=== PATIENT | male | born 1990 | race African-American/Black ===

== ENCOUNTER 2016-10-17 15:45 | Inpatient (IN) | payer OTHER ==
--- NOTE | ~2016-10-17 | DS ---
Unit #: [id number] #: [id number] Patient: EDWARD CRAWFORD [id number] [address] [address] [id number] I MR#: [id number] NAME: EDWARD CRAWFORD ROOM: 230 Age: 26 Sex: M Admission Date: 10/17/2016 : 1990 Discharge Date: 10/19/2016 Attending Physician: Dave Cash M.D. Primary Care Physician: No Primary Care Physician DISCHARGE SUMMARY DISCHARGE DIAGNOSES 1. Diabetic ketoacidosis. 2. Left arm cellulitis and abscess. 3. Hypokalemia. 4. IV drug abuse. 5. Depression and anxiety. HOSPITAL COURSE The patient is a 26-year-old male who presented to [facility] emergency department on October 17 secondary to some redness and swelling in his left upper extremity. He is a known IV drug abuser. The patient states that he had associated redness, swelling and pain. In the ED, he was noted to have a glucose of 488 and anion gap of 18 with a beta-hydroxybutyrate of 8.5. As a result, he was admitted, started on a DKA protocol and insulin drip. Surgical consult was obtained for left upper extremity cellulitis and abscess. The patient was taken to the operating room on October 18 and underwent incision and drainage of left arm abscess. Ultimately, cultures grew methicillin susceptible Staph aureus and group B Strep. The patient had been started on IV vancomycin and Zosyn at the time of admission. These antibiotics were changed to Rocephin given sensitivity. The patient's diabetic ketoacidosis resolved as anticipated with insulin drip. There were no complications. The patient was switched back to his long acting insulin doses and was fed. He tolerated the diet well. At the time of discharge, the patient has been switched to oral antibiotics. Of note, the patient is homeless but states he has a place to stay. He is being discharged there now with oral Bactrim. DISCHARGE MEDICATIONS 1. Lantus 45 units in the morning, 35 units at night. 2. Humalog sliding scale. 3. Hydrocodone/acetaminophen 10/325m, one p.o. q.6 hours p.r.n. pain. 4. Bactrim DS, one p.o. b.i.d. FOLLOWUP The patient should follow up with his primary care provider for continued insulin and evaluation of his wound. The patient is being discharged with home health for wound care as well. Unit #: [id number] #: [id number] Patient: EDWARD CRAWFORD Dictated by... Dave Cash M.D. JUVENTINO/sandra TD: 10/24/2016 12:47 JOB #: [id number] DISCHARGE SUMMARY Page 1 of 1 X Dave Cash MD X DISCHARGE SUMMARY
--- NOTE | ~2016-10-17 | HP ---
Unit #: [id number] #: [id number] Patient: EDWARD CRAWFORD [id number] [address] [address] [id number] I MR#: [id number] NAME: EDWARD CRAWFORD ROOM: 48854 Age: 26 Sex: M Admission Date: 10/17/2016 : 1990 Attending Physician: Farzana Leiva M.D. Primary Care Physician: Primary Care Physician No HISTORY AND PHYSICAL CHIEF COMPLAINT Abscess left arm. HISTORY OF PRESENT ILLNESS The patient is a 26-year-old male with past medical history of diabetes, IV drug use, depression anxiety, tobacco abuse, who presented to the emergency department for evaluation of the above. The patient states that he injected IV drugs into his left arm. Since that time, he has had increasing redness, swelling, and pain. He denies any fever or chills. He states that he has been taking his insulin as prescribed with the last dose being this morning. He states that he is on Lantus 45 units in the morning, 35 units at night, as well as Humalog sliding scale. He does not routinely check his blood sugars at home. In the emergency department, white blood cell count is 10.7. Glucose 488, CO2 is 14, anion gap is 18. He was given 2 liters of normal saline in the emergency department as well as vancomycin. He is being admitted to [facility] for evaluation and further treatment. PAST MEDICAL HISTORY 1. Admission to [facility] 03/23/2016 for DKA. 2. IV drug use. 3. Depression anxiety. PAST SURGICAL HISTORY Eye surgery. ALLERGIES No known allergies. HOME MEDICATIONS 1. Lantus 45 units in the morning. 2. Lantus 35 units at night. 3. Humalog sliding scale. Home medications will need to be reviewed and verified. SOCIAL HISTORY The patient has a history of polysubstance abuse. He smokes a pack of cigarettes daily. He uses IV methamphetamine and heroin. The last use was yesterday. Unit #: [id number] #: [id number] Patient: EDWARD CRAWFORD REVIEW OF SYSTEMS A complete review of systems is negative except as indicated in the HPI. PHYSICAL EXAMINATION VITAL SIGNS: Temperature 98.1, pulse 72, respirations 18, blood pressure 147/91, oxygen saturation 100% on room air. GENERAL: The patient is awake and alert. HEENT: Head is atraumatic. Mucous membranes are dry. NECK: Supple. Trachea is midline. LUNGS: Clear to auscultation bilaterally with no increased work of breathing. HEART: Regular rate and rhythm. ABDOMEN: Soft, nontender. Bowel sounds present in all four quadrants. EXTREMITIES: The left upper extremity in the region of the bicep is erythematous, warm and tender to palpation. He has decreased range of motion secondary to pain. He does have a 2+ radial pulse involving the left upper extremity. NEUROLOGIC: Patient is awake and alert. He follows commands. PSYCHIATRIC: Mood and affect are normal. Patient demonstrates poor insight and judgment. SKIN OF EXAMINED AREAS: Previously described abnormalities. DIAGNOSTIC STUDIES LABORATORY: Complete blood count notable for a white blood cell count of 10.7. Lactic acid 1.1. Comprehensive metabolic panel notable for sodium of 131 that corrects when glucose of 488 is accounted for, potassium is 3.3, chloride 99, CO2 is 14, anion gap is 18, alkaline phosphatase 121. ASSESSMENT The patient is a 26-year-old male with: 1. Diabetic ketoacidosis. The patient received 2 liters of normal saline in the emergency department. DKA protocol has been ordered. 2. Anion gap metabolic acidosis with an anion gap of 18. 3. Hypokalemia. 4. Abscess left bicep. The patient received vancomycin in the emergency department. 5. IV drug use including methamphetamine and heroin, last use was yesterday. 6. Tobacco abuse. 7. Depression anxiety. PLAN 1. Admit to ICU. 2. N.p.o. except ice chips. 3. DKA protocol with insulin drip. 4. Check magnesium level. 5. Potassium magnesium protocol. 6. N.p.o. after midnight for possible surgical intervention. 7. Blood cultures x2. 8. Vancomycin IV and Zosyn IV, for abscess pending further workup. 9. Consult [facility] regarding abscess. 10. Check HIV and hepatitis panel. 11. manager coremanager custom consult regarding IV drug use. 12. P.r.n. Toradol. 13. P.r.n. Tylenol. 14. P.r.n. Zofran. 15. Repeat labs in the morning and as per DKA protocol. Unit #: [id number] #: [id number] Patient: EDWARD CRAWFORD 16. SCDs for DVT prophylaxis. 17. Protonix for GI prophylaxis since the patient will be in the ICU. 18. Check urinalysis and urine tox screen. Thirty minutes critical care time spent in the care of this patient (6:30 to 7 p.m.). Dictated by Marvin Núñez/michael TD: 10/17/2016 21:35 JOB #: [id number] HISTORY AND PHYSICAL Page 1 of 1 X Farzana Leiva MD X HISTORY AND PHYSICAL
--- NOTE | ~2016-10-17 | CR72 ---
[facility] A Service of [facility] & [facility] RADIOLOGY TEXT RESULTS PATIENT: EDWARD CRAWFORD LOCATION: [address] : [birth year] UNIT #: [id number] AGE: [address]: Dave Cash MD SEX: M ORDER DR: [id number] [facility] [address] [facility]. [place], [place] [address] [id number] I MR#: [id number] Acc #: [id number] NAME: EDWARD CRAWFORD : 1990 SEX: M STUDY DATE/TIME: 10/17/2016 19:44 UNIT: [facility] ROOM: [facility] STUDY DESCRIPTION: CR Chest Single View Portable Attending Physician: Farzana Leiva M.D. Ordering Physician: Farzana Leiva M.D. Primary Care Physician: Primary Care Physician No MEDICAL IMAGING REPORT This report is preliminary unless electronic signature is present EXAM Portable chest HISTORY Shortness of air with activity, diabetic with left arm abscess, symptoms for 3 days. COMPARISON 03/17/2016 FINDINGS A single AP portable view of the chest shows both lungs to be clear. The heart is normal in size. The mediastinal contour is normal. No significant bone abnormalities are seen. IMPRESSION Normal portable chest. Dictated by... Miguel Thomas M.D. THIS IS AN ELECTRONICALLY VERIFIED REPORT Miguel Thomas M.D. at 10/18/2016 10:10 AM DELMA/tila TD: 10/18/2016 00:52 JOB #: [id number] MEDICAL IMAGING REPORT Page 1 of 1 COPY
--- NOTE | ~2016-10-17 | CO ---
Unit #: [id number] #: [id number] Patient: EDWARD CRAWFORD [id number] [address] [place], [place] [address] [id number] José Antonio MR#: [id number] NAME: EDWARD CRAWFORD ROOM: 230 Age: 26 Sex: M Admission Date: 10/17/2016 : 1990 Attending Physician: Dave Cash M.D. Consultation Date: 10/18/2016 CONSULTATION REPORT CHIEF COMPLAINT Left arm abscess. HISTORY OF PRESENT ILLNESS This is a 26-year-old gentleman, who has a left arm abscess secondary to IV drug use. It flared up several days ago. He has been admitted for diabetic ketoacidosis and is currently in the intensive care unit. He is a relatively poor historian. PAST MEDICAL HISTORY Significant for diabetes, hypertension, and depression. PAST SURGICAL HISTORY He has had some kind of eye surgery. ALLERGIES He has no known drug allergies. MEDICATIONS Please see med rec list for list of medications. SOCIAL HISTORY He does smoke and has a history of polysubstance abuse. FAMILY HISTORY Noncontributory. REVIEW OF SYSTEMS Negative for fevers or jaundice or weight loss. Otherwise as above. PHYSICAL EXAMINATION VITAL SIGNS: Temperature is 98.0, heart rate is 83, respiratory rate is 14, blood pressure is 138/55. GENERAL: He is in no acute distress. HEENT: Pupils are equal and reactive to light and accommodation. His extraocular muscles are intact. NECK: Without masses or bruits. LUNGS: Show good breath sounds bilaterally with equal air exchange. CARDIAC: Shows regular rate and rhythm without murmur. ABDOMEN: Soft, nondistended, and nontender with no organomegaly. EXTREMITIES: Show left arm with cellulitis, induration, and tenderness along the mid arm. NEUROLOGIC: He is alert and oriented. There are no focal deficits. Unit #: [id number] #: [id number] Patient: EDWARD CRAWFORD DIAGNOSTIC STUDIES LABORATORY RESULTS: Glucose is down to 241 this morning. White blood count is 9000, hemoglobin is 13. OVERALL IMPRESSION This is a gentleman who has a left arm abscess. He needs incision and drainage today. I described the procedure including risks and benefits and I also told him he would need to have postoperative dressing changes. He understands and wishes to proceed. Dictated by... Derek Zhong III, M.D. VCL/yolanda TD: 10/19/2016 04:27 JOB #: [id number] CONSULTATION REPORT Page 1 of 1 X Derek Zhong III, MD X CONSULTATION REPORT
--- NOTE | ~2016-10-17 | EKG ---
PATIENT: EDWARD CRAWFORD UNIT #: [id number] Ventricular Rate: 68 BPM Atrial Rate: 68 BPM P-R Interval: 116 ms QRS Duration: 102 ms Q-T Interval: 484 ms QTC Calculation(Bezet): 514 ms P Chapin: 30 degrees Calculated R Chapin: 69 degrees Calculated T Chapin: 46 degrees Diagnosis Line: Normal sinus rhythm Diagnosis Line: Prolonged QT Diagnosis Line: Abnormal ECG Diagnosis Line: No previous ECGs available Diagnosis Line: Confirmed by SINAI DWYER MD ([id number]) on Diagnosis Line: 10/18/2016 6:53:48 AM INTERPRETING MD: ROBERTA
--- NOTE | ~2016-10-17 | OR ---
Unit #: [id number] #: [id number] Patient: EDWARD CRAWFORD [id number] [address] [address] [id number] I MR#: [id number] NAME: EDWARD CRAWFORD ROOM: 230 Date of Procedure: 10/18/2016 Admission Date: 10/17/2016 Surgeon: Derek Zhong III, M.D. : 1990 Attending Physician: Dave Cash M.D. OPERATIVE REPORT PREOPERATIVE DIAGNOSIS Left arm abscess secondary to IV drug use. POSTOPERATIVE DIAGNOSIS Left arm abscess secondary to IV drug use. PROCEDURE PERFORMED Incision and drainage of left arm abscess. ANESTHESIA General. SPECIMEN Cultures to microbiology. COMPLICATIONS None apparent. INDICATIONS FOR PROCEDURE This is a 26-year-old gentleman, who has a history of polysubstance abuse and IV drug use. He has an abscess in his left upper arm. He is here today for incision and drainage. DESCRIPTION OF PROCEDURE After consent was obtained, the patient was brought to the operating room and placed in the supine position. General anesthetic was administered and his left arm was prepped and draped in standard surgical fashion. I made a longitudinal incision overlying the area that was most indurated and I evacuated purulent pocket. Cultures were sent to microbiology. I irrigated and packed the wound with Betadine soaked Kerlix gauze. He tolerated the procedure without any problems and returned to the recovery room in stable condition. Dictated by... Derek Zhong III, M.D. VCL/yolanda TD: 10/18/2016 15:09 JOB #: [id number] Unit #: [id number] #: [id number] Patient: EDWARD CRAWFORD OPERATIVE REPORT Page 1 of 1 X Derek Zhong III, MD PROCEDURE OPERATIVE NOTE
[~2016-10-17 15:45] MED LIST: AUGMENTIN875 MG PO; BENADRYL25 M1 PO; DERMACORT1 GM EXT; FLEXERIL10 MG PO; HUMULIN 70100 UNIT/1 SUBQ; HUMULIN R100 U/ML; LANTUS100 UNITS/ SUBQ; LISINOPRIL10 MG PO; METFORMIN PO; NAPROSYN250 M1 PO; NOVOLIN 70100 UNITS/ SUBQ; NOVOLOG100 UNITS/ SUBQ; [UNRECOGNIZED DRUG - OTHER]
[2016-10-17 16:55] LABS: BASOPHIL% 0.4 % (0-2.5); EOSINOPHIL# 0.1 X10e3 (0-0.7); EOSINOPHIL% 1.1 % (0.0-7.0); HEMOGLOBIN 14.1 gm/dL (13.0-16.0); LYMPHOCYTE# 2.4 X10e3 (1.0-3.5); LYMPHOCYTE% 22.4 % (17.0-45.0); MEAN CELL VOLUME 83.1 FL (83-96); MEAN CORPUSCULAR HEMOGLOBIN 27.3 PG (28-34); MEAN CORPUSCULAR HGB CONC 32.9 g/dL (30-36); MEAN PLATELET VOLUME 9.2 FL (6.5-11.5); MONOCYTE# 0.8 X10e3 (0-1.0); MONOCYTE% 7.9 % (3.0-12.0); NEUTROPHIL# 7.3 X10e3 (1.5-7.1); NEUTROPHIL% 68.2 % (40-75); PLATELET COUNT 270 X10e3 (140-420); RED BLOOD COUNT 5.17 X10e (3.90-5.60); RED CELL DISTRIBUTION WIDTH 14.5 % (11.0-15.5); WHITE BLOOD COUNT 10.7 X10e3 (4.0-10.5)
[2016-10-17 17:02] LABS: DIFF IND NO
[2016-10-17 17:17] LABS: ALBUMIN SERUM 3.9 g/dL (3.5-5.0); BILIRUBIN, DIRECT 0.1 mg/dL (0.0-0.2); BILIRUBIN,INDIRECT 1.2 mg/dL (0.0-0.9); BILIRUBIN,TOTAL 1.3 mg/dL (0.2-2.0); CALCIUM SERUM 8.8 mg/dL (8.4-10.2); GLOM FILT RATE Estimated 121.6 mL/min (>60); POTASSIUM 3.3 mmol/L (3.5-5.1); PROTEIN TOTAL SERUM 7.4 g/dL (6.0-8.3)
[2016-10-17 18:49] LABS: URINE SOURCE CLEAN CATCH
[2016-10-17 18:54] LABS: URINE APPEARANCE CLEAR; URINE BILIRUBIN NEG (NEG); URINE BLOOD TRACE (NEG); URINE COLOR YELLOW; URINE GLUCOSE >1000 MG/DL (NEG); URINE KETONE 3+ (NEG); URINE LEUKOCYTE ESTERASE NEG (NEG); URINE NITRATE NEG (NEG); URINE PROTEIN NEG (NEG); URINE SPECIFIC GRAVITY 1.037 (1.003-1.035); URINE UROBILINOGEN 0.2 MG/DL (NEG)
[2016-10-17 18:57] LABS: URBCS1 AUWI 0-2 /[HPF] (0-2); URINE BACTERIA AUWI NEG (NEGATIVE); URINE SQUAMOUS EPITHELIAL CELL NONE SEEN /[HPF]; UWBCS1 AUWI 0-2 (0-5)
[2016-10-17 18:58] LABS: CULTURE INDICATED? NO
[2016-10-17 19:04] LABS: AMPHETAMINE POS (NEG); BARBITURATES NEG (NEG); BENZODIAZEPINES NEG (NEG); COCAINE NEG (NEG); MARIJUANA POS (NEG); OPIATES NEG (NEG); TRICYCLIC ANTIDEPRESSANTS NEG (NEG); U METHADONE NEG (NEG)
[2016-10-17 19:55] LABS: PROTHROMBIN TIME (PATIENT) 10.6 SECONDS (10.0-11.7)
[2016-10-17 20:07] LABS: AMPHETAMINE POS (NEG); BARBITURATES NEG (NEG); BENZODIAZEPINES NEG (NEG); COCAINE NEG (NEG); MARIJUANA POS (NEG); OPIATES NEG (NEG); TRICYCLIC ANTIDEPRESSANTS NEG (NEG); U METHADONE NEG (NEG)
[2016-10-17 20:23] LABS: MAGNESIUM 1.8 mg/dL (1.6-3.0)
[2016-10-17 20:28] LABS: BETA HYDROXYBUTYRATE 8.5 MMOL/L (0.02-0.27)
[2016-10-17 21:35] LABS: BUN/CREATININE RATIO 7.5; CREATININE SERUM 0.8 mg/dL (0.6-1.4); POTASSIUM 4.6 mmol/L (3.5-5.1)
[2016-10-17 21:36] LABS: CALCIUM SERUM 5.8 mg/dL (8.4-10.2)
[2016-10-18 01:02] LABS: BUN/CREATININE RATIO 7.77; CREATININE SERUM 0.9 mg/dL (0.6-1.4); GLOM FILT RATE Estimated 138.1 mL/min (>60)
[2016-10-18 01:04] LABS: CALCIUM SERUM 7.8 mg/dL (8.4-10.2); POTASSIUM 2.8 mmol/L (3.5-5.1)
[2016-10-18 03:46] LABS: BASOPHIL# 0.1 X10e3 (0-0.3); BASOPHIL% 0.5 % (0-2.5); DIFF IND NO; EOSINOPHIL# 0.1 X10e3 (0-0.7); EOSINOPHIL% 1.1 % (0.0-7.0); HEMATOCRIT 39.2 % (38.0-50.0); HEMOGLOBIN 13.2 gm/dL (13.0-16.0); LYMPHOCYTE# 2.2 X10e3 (1.0-3.5); LYMPHOCYTE% 23.2 % (17.0-45.0); MEAN CELL VOLUME 81.5 FL (83-96); MEAN CORPUSCULAR HEMOGLOBIN 27.3 PG (28-34); MEAN CORPUSCULAR HGB CONC 33.6 g/dL (30-36); MEAN PLATELET VOLUME 8.5 FL (6.5-11.5); MONOCYTE# 0.5 X10e3 (0-1.0); MONOCYTE% 5.3 % (3.0-12.0); NEUTROPHIL# 6.7 X10e3 (1.5-7.1); NEUTROPHIL% 69.9 % (40-75); PLATELET COUNT 256 X10e3 (140-420); RED BLOOD COUNT 4.81 X10e (3.90-5.60); RED CELL DISTRIBUTION WIDTH 14.4 % (11.0-15.5); WHITE BLOOD COUNT 9.5 X10e3 (4.0-10.5)
[2016-10-18 03:56] LABS: PROTHROMBIN TIME (PATIENT) 10.7 SECONDS (10.0-11.7)
[2016-10-18 04:10] LABS: ALBUMIN SERUM 3.1 g/dL (3.5-5.0); BILIRUBIN,TOTAL 1.3 mg/dL (0.2-2.0); BUN/CREATININE RATIO 8.57; CALCIUM SERUM 7.8 mg/dL (8.4-10.2); CREATININE SERUM 0.7 mg/dL (0.6-1.4); GLOM FILT RATE Estimated 153.2 mL/min (>60); MAGNESIUM 1.6 mg/dL (1.6-3.0); PHOSPHOROUS 1.2 mg/dL (2.5-4.6); PROTEIN TOTAL SERUM 6.3 g/dL (6.0-8.3)
[2016-10-18 04:11] LABS: POTASSIUM 2.8 mmol/L (3.5-5.1)
[2016-10-18 10:27] LABS: BUN/CREATININE RATIO 8.33; CALCIUM SERUM 7.9 mg/dL (8.4-10.2); CREATININE SERUM 0.6 mg/dL (0.6-1.4); GLOM FILT RATE Estimated 163.2 mL/min (>60); PHOSPHOROUS 2.1 mg/dL (2.5-4.6); POTASSIUM 3.1 mmol/L (3.5-5.1)
[2016-10-19 05:24] LABS: HEMOGLOBIN 13.5 gm/dL (13.0-16.0); MEAN CELL VOLUME 80.5 FL (83-96); MEAN CORPUSCULAR HEMOGLOBIN 27.8 PG (28-34); MEAN CORPUSCULAR HGB CONC 34.6 g/dL (30-36); MEAN PLATELET VOLUME 8.5 FL (6.5-11.5); RED BLOOD COUNT 4.85 X10e (3.90-5.60); RED CELL DISTRIBUTION WIDTH 14.1 % (11.0-15.5); WHITE BLOOD COUNT 9.5 X10e3 (4.0-10.5)
[2016-10-19 06:17] LABS: BUN/CREATININE RATIO 8.33; CREATININE SERUM 0.6 mg/dL (0.6-1.4); GLOM FILT RATE Estimated 163.2 mL/min (>60)
[2016-10-19 06:50] LABS: POTASSIUM 2.9 mmol/L (3.5-5.1)
[2016-10-19] MEDS ORDERED: LANTUS100 U/ML SUBQ ×2 (14:31→14:32)
[2016-10-19] MEDS ORDERED: NOVOLOG100 U/ML SUBQ (14:32)
[2016-10-19] MEDS ORDERED: LORTAB 10-3251 EACH PO (17:47)
[2016-10-19] MEDS ORDERED: BACTRIM DS TAB1 EACH PO (17:47)
[2016-10-23 22:45] LABS: HA AB IGM (HEPPAN) Nonreactive (()); HB CORE AB IGM (HEPPAN) Nonreactive (Nonreactive); HB S AG (HEPPAN) Nonreactive (Nonreactive); HEP C AB (HEPPAN) Reactive (Nonreactive); HEP C AB SIGNAL TO CUTOFF 7.56 ratio (<1.00)
== END 2016-10-19 18:16 | disposition home or self-care (01) | DRG 602 ==
LOC: CED 15:45 → CEDOF 19:00 → CED 19:31 → CEDOF 21:57 → CICCU3 21:57 → C2A 10-18 13:07
PROVIDERS: Family Medicine; Internal Medicine; Physician Assistant; Surgery
PROC: 0X990ZZ Drainage of Left Upper Arm, Open Approach (ICD-10-PCS; principal; 2016-10-18 09:00)
DX: L02.414 Cutaneous abscess of left upper limb (principal); E13.10 Other specified diabetes mellitus with ketoacidosis without coma; Z79.4 Long term (current) use of insulin; F32.9 Major depressive disorder, single episode, unspecified; F41.9 Anxiety disorder, unspecified; F17.210 Nicotine dependence, cigarettes, uncomplicated; F11.10 Opioid abuse, uncomplicated; F15.10 Other stimulant abuse, uncomplicated; E87.6 Hypokalemia; I10 Essential (primary) hypertension
CPT/HCPCS: 36415; 71010; 80048; 80053; 80074; 80076; 80307; 81003; 82010; 82150; 82947; 83036; 83605; 83690; 83735; 84100; 85025; 85027; 85610; 87040; 87070; 87075; 87077; 87186; 87205; 87522; 87806; 93005; 96361; 96374; 96375; 99284; J1815; J1885; J2405; J2543; J3010; J3370; J3475

== ENCOUNTER 2016-10-22 02:28 | Inpatient (IN) | payer OTHER ==
--- NOTE | ~2016-10-22 | CR72 ---
[facility] A Service of [facility] & [facility] RADIOLOGY TEXT RESULTS PATIENT: EDWARD CRAWFORD LOCATION: [facility] [address]-99 : [birth year] UNIT #: [id number] AGE: [address]: Dave Cash MD SEX: M ORDER DR: [id number] [facility] [address] [address] [facility] [place], [place] [address] [id number] I MR#: [id number] Acc #: [id number] NAME: EDWARD CRAWFORD : 1990 SEX: M STUDY DATE/TIME: 10/22/2016 9:33 UNIT: [facility] ROOM: 17567 STUDY DESCRIPTION: CR Chest Single View Portable Attending Physician: Dave Cash M.D. Ordering Physician: Dave Cash M.D. Primary Care Physician: Primary Care Physician No MEDICAL IMAGING REPORT This report is preliminary unless electronic signature is present EXAM Single view chest. HISTORY Diabetic ketoacidosis. Shortness of air. Nausea and vomiting. FINDINGS A single portable AP view of the chest compared to 10/17/2016. The heart and mediastinal contours are normal. The lungs are clear. IMPRESSION Negative chest radiograph Dictated by... Mihai Navarro M.D. THIS IS AN ELECTRONICALLY VERIFIED REPORT Mihai Navarro M.D. at 10/22/2016 4:54 PM JERRY/katina TD: 10/22/2016 14:31 JOB #: [id number] MEDICAL IMAGING REPORT Page 1 of 1 COPY
--- NOTE | ~2016-10-22 | DS ---
Unit #: [id number] #: [id number] Patient: EDWARD CRAWFORD [id number] [address] [address] [id number] I MR#: [id number] NAME: EDWARD CRAWFORD ROOM: 460 Age: 26 Sex: M Admission Date: 10/22/2016 : 1990 Discharge Date: 10/25/2016 Attending Physician: Dave Cash M.D. Primary Care Physician: No Primary Care Physician DISCHARGE SUMMARY DISCHARGE DIAGNOSES 1. Diabetic ketoacidosis. 2. Left upper extremity wound. 3. Intravenous drug abuse. HOSPITAL COURSE The patient is a 26-year-old male who was admitted to this facility on October 17 through the for DKA, who re-presents on 10/22 with the same. Upon discharge from his previous stay, the patient thought he had a place to stay. However, this fell through after he left and the patient has been homeless. He had not taken his antibiotics or his insulin. The patient was started on DKA protocol and IV antibiotics given his recent admission for left upper extremity abscess and cellulitis. The patient responded well to treatment. Ultimately, the insulin drip was stopped and the patient was transferred to the floor. The patient was continued on his insulin and IV antibiotics. A long discussion was had with the patient regarding drug abuse and rehab. He states that at this time he is interested in undergoing rehab. Given his homelessness, he is being discharged to a longterm. He will receive prescriptions and medications for his diabetes and left upper extremity wound prior to discharge. DISCHARGE MEDICATIONS 1. Bactrim DS, one p.o. b.i.d. x5 days. 2. Ibuprofen 800 mg p.o. q.8 hours p.r.n. mild/moderate pain. 3. Glucometer plus strips, lancets, insulin syringes. 4. NovoLog per sliding scale, one injection subcu a.c. 5. Lantus 45 units in the morning, 35 units at night. FOLLOWUP The patient is being discharged to a longterm and rehab. Appropriate followup can be determined upon discharge from that facility. Dictated by... Dave Cash M.D. JUVENTINO/sandra TD: 10/25/2016 11:45 Unit #: [id number] #: [id number] Patient: EDWARD CRAWFORD JOB #: [id number] DISCHARGE SUMMARY Page 1 of 1 X Dave Cash MD X DISCHARGE SUMMARY
--- NOTE | ~2016-10-22 | EKG ---
PATIENT: EDWARD CRAWFORD UNIT #: [id number] Ventricular Rate: 67 BPM Atrial Rate: 67 BPM P-R Interval: 120 ms QRS Duration: 98 ms Q-T Interval: 498 ms QTC Calculation(Bezet): 526 ms P Phoenix: 47 degrees Calculated R Phoenix: 62 degrees Calculated T Phoenix: 46 degrees Diagnosis Line: Normal sinus rhythm Diagnosis Line: Prolonged QT Diagnosis Line: Nonspecific ST abnormality Diagnosis Line: Abnormal ECG Diagnosis Line: When compared with ECG of 17-OCT-2016 20:06, Diagnosis Line: ST elevation now present in Inferior leads Diagnosis Line: Confirmed by SINAI DWYER MD ([id number]) on Diagnosis Line: 10/23/2016 10:47:30 AM INTERPRETING MD: ROBERTA
--- NOTE | ~2016-10-22 | HP ---
Unit #: [id number] #: [id number] Patient: EDWARD CRAWFORD [id number] [address] [address] [id number] MR#: [id number] NAME: EDWARD CRAWFORD ROOM: 460 Age: 26 Sex: M Admission Date: 10/22/2016 : 1990 Attending Physician: Dave Cash M.D. Primary Care Physician: No Primary Care Physician HISTORY AND PHYSICAL CHIEF COMPLAINT Nausea, vomiting. HISTORY OF PRESENT ILLNESS The patient is a 26-year-old male who presents to [facility] emergency department with worsening nausea and vomiting. Symptoms have been progressive over the course of 24 hours associated with polyuria, polydipsia. No alleviating factors. The patient was evaluated in the emergency department and noted to be in diabetic ketoacidosis. Of note, the patient was just discharged three days before for the same. PAST MEDICAL HISTORY DKA, IV drug abuse. PAST SURGICAL HISTORY Eye surgery. SOCIAL HISTORY The patient is homeless, continues to be a polysubstance abuser, smokes a packs of cigarettes a day. FAMILY HISTORY Diabetes. ALLERGIES No known drug allergies. HOME MEDICATIONS 1. Bactrim DS one p.o. b.i.d. 2. Hydrocodone/acetaminophen 10/325 mg one p.o. q.6 hours p.r.n. 3. Lantus 35 units in the evening, 40 units in the morning. 4. NovoLog per sliding scale. REVIEW OF SYSTEMS A 10-point review of systems obtained. Negative except as per HPI with the addition of his right upper extremity wound where he has had an I and D of abscess. PHYSICAL EXAMINATION GENERAL APPEARANCE: A 26-year-old male in no acute distress, appears stated age. VITAL SIGNS: Temperature 99.9. Pulse 85. Blood pressure 147/62. HEENT: Pupils are equal and round. Extraocular movements intact. Mucous membranes dry. NECK: Supple. No JVD. No lymphadenopathy. Unit #: [id number] #: [id number] Patient: EDWARD CRAWFORD CARDIAC: Regular rate and rhythm. No murmurs, gallops or rubs. LUNGS: Clear to auscultation bilaterally. ABDOMEN: Nontender, nondistended. Positive bowel sounds. EXTREMITIES: No clubbing, cyanosis, or edema. Warm and dry. PSYCHIATRIC: Alert and oriented x3. Affect is appropriate. NEUROLOGIC: Cranial nerves II-XII intact grossly. Patient moves all extremities equal and with purpose. SKIN: No rash or bruises. He has left upper extremity wound. MUSCULOSKELETAL: No muscle or joint pain. No muscle or joint swelling. DIAGNOSTIC STUDIES LABORATORY: Patient's pH 7.23. Beta hydroxybutyrate 7.94. ASSESSMENT AND PLAN 1. Diabetic ketoacidosis. The patient was discharged a few days ago for the same diagnosis and stated at that time he had a place to stay. However, this residence fell through and the patient is homeless and not taking his insulin. The patient has been started on insulin drip per DKA protocol. 2. Left upper extremity wound. I started the patient on IV Rocephin given that he was not taking his antibiotics. Cultures from October 18 grew group B strep and MSSA. 3. Prophylaxis. The patient was started on Lovenox. Dictated by Dave Cash M.D. JUVENTINO/royce TD: 10/23/2016 08:33 JOB #: [id number] HISTORY AND PHYSICAL Page 1 of 1 X Dave Cash MD X HISTORY AND PHYSICAL
--- NOTE | ~2016-10-22 | CT2 ---
[facility] A Service of [facility] RADIOLOGY TEXT RESULTS PATIENT: EDWARD CRAWFORD LOCATION: [facility] : [birth year] UNIT #: [id number] AGE: [address]: Dave Cash MD SEX: M ORDER DR: [id number] [facility] [address] [facility]. [place], [place] [address] [id number] MR#: [id number] Acc #: [id number] NAME: EDWARD CRAWFORD : 1990 SEX: M STUDY DATE/TIME: 10/22/2016 6:03 UNIT: [facility] ROOM: 57297 STUDY DESCRIPTION: CT Abd and Pelv W Cont Attending Physician: Dave Cash M.D. Ordering Physician: Rolan He M.D. Primary Care Physician: Primary Care Physician No MEDICAL IMAGING REPORT This report is preliminary unless electronic signature is present EXAM CT abdomen and pelvis, 10/22 INDICATION Chills, nausea and vomiting that started yesterday. Abdominal pain and weakness as well. TECHNIQUE Axial images were obtained through the abdomen and pelvis following IV contrast administration. Multiplanar reformats were obtained. This CT exam was performed with one or more of the following radiation dose reduction techniques: automatic exposure control, adjustment of mA and/or kV according to patient size, and iterative reconstruction. COMPARISON No comparison. FINDINGS ABDOMEN: Lung bases are clear. The gallbladder is unremarkable. There is no biliary obstruction. Solid organs are normal. Incidental note is made of focal fatty infiltration in the left hepatic lobe adjacent to the fissure. No free fluid or adenopathy is seen. The unopacified GI tract is normal. PELVIS: Soft tissue gas is noted in the right side ventral abdominal wall with an associated soft tissue nodule. This is presumably site of medication injection. Correlate clinically. The appendix is normal. The remainder of the unopacified GI tract is normal as well. Urinary bladder is normal. No free fluid identified. IMPRESSION 1. Normal unopacified GI tract including the appendix. [facility] A Service of [facility] RADIOLOGY TEXT RESULTS PATIENT: EDWARD CRAWFORD LOCATION: [facility] : [birth year] UNIT #: [id number] AGE: [address]: Dave Cash MD SEX: M ORDER DR: 2. Soft tissue gas with a small soft tissue nodule in the right side ventral abdominal wall. This is presumably from medication injection. Correlate clinically in this regard. 3. CT abdomen and pelvis is otherwise negative. Dictated by... Dewayne Martinez Jr., M.D. THIS IS AN ELECTRONICALLY VERIFIED REPORT Dewayne Martinez Jr., M.D. at 10/22/2016 12:56 PM GUNNAR/nancy TD: 10/22/2016 12:53 JOB #: [id number] MEDICAL IMAGING REPORT Page 1 of 1 COPY
[~2016-10-22 02:28] MED LIST changes: +BACTRIM DS TAB1 EACH PO; +LANTUS100 U/ML SUBQ; +LORTAB 10-3251 EACH PO; +NOVOLOG100 U/ML SUBQ
[2016-10-22 04:18] LABS: URINE SOURCE CLEAN CATCH
[2016-10-22 04:32] LABS: URINE APPEARANCE CLEAR; URINE BILIRUBIN NEG (NEG); URINE BLOOD 1+ (NEG); URINE COLOR YELLOW; URINE GLUCOSE >1000 MG/DL (NEG); URINE KETONE 3+ (NEG); URINE LEUKOCYTE ESTERASE NEG (NEG); URINE NITRATE NEG (NEG); URINE PH 5.5 (5-8); URINE PROTEIN 2+ (NEG); URINE SPECIFIC GRAVITY 1.037 (1.003-1.035); URINE UROBILINOGEN 0.2 MG/DL (NEG)
[2016-10-22 04:34] LABS: U HYALINE CASTS AUWI 0-2 /[LPF]; URBCS1 AUWI 0-2 /[HPF] (0-2); URINE BACTERIA AUWI NEG (NEGATIVE); URINE SQUAMOUS EPITHELIAL CELL NONE SEEN /[HPF]; UWBCS1 AUWI 0-2 (0-5)
[2016-10-22 04:35] LABS: CULTURE INDICATED? NO
[2016-10-22 04:42] LABS: AMPHETAMINE POS (NEG); BARBITURATES NEG (NEG); BENZODIAZEPINES NEG (NEG); COCAINE NEG (NEG); MARIJUANA POS (NEG); OPIATES NEG (NEG); TRICYCLIC ANTIDEPRESSANTS NEG (NEG); U METHADONE NEG (NEG)
[2016-10-22 04:42] LABS: BASOPHIL% 0.4 % (0-2.5); EOSINOPHIL# 0.1 X10e3 (0-0.7); EOSINOPHIL% 0.8 % (0.0-7.0); HEMATOCRIT 48.9 % (38.0-50.0); HEMOGLOBIN 15.9 gm/dL (13.0-16.0); LYMPHOCYTE# 3.4 X10e3 (1.0-3.5); LYMPHOCYTE% 34.2 % (17.0-45.0); MEAN CELL VOLUME 84.2 FL (83-96); MEAN CORPUSCULAR HEMOGLOBIN 27.5 PG (28-34); MEAN CORPUSCULAR HGB CONC 32.6 g/dL (30-36); MEAN PLATELET VOLUME 8.1 FL (6.5-11.5); MONOCYTE# 0.8 X10e3 (0-1.0); MONOCYTE% 8.5 % (3.0-12.0); NEUTROPHIL# 5.5 X10e3 (1.5-7.1); NEUTROPHIL% 56.1 % (40-75); PLATELET COUNT 512 X10e3 (140-420); RED CELL DISTRIBUTION WIDTH 15.2 % (11.0-15.5); WHITE BLOOD COUNT 9.9 X10e3 (4.0-10.5)
[2016-10-22 04:46] LABS: DIFF IND NO
[2016-10-22 05:16] LABS: ALBUMIN SERUM 4.3 g/dL (3.5-5.0); BETA HYDROXYBUTYRATE 7.94 MMOL/L (0.02-0.27); BILIRUBIN, DIRECT 0.1 mg/dL (0.0-0.2); BILIRUBIN,INDIRECT 1.4 mg/dL (0.0-0.9); BILIRUBIN,TOTAL 1.5 mg/dL (0.2-2.0); CALCIUM SERUM 9.4 mg/dL (8.4-10.2); GLOM FILT RATE Estimated 121.6 mL/min (>60); PROTEIN TOTAL SERUM 8.8 g/dL (6.0-8.3)
[2016-10-22 05:33] LABS: ARTERIAL BLD GAS O2 SATURATION 94.8 % (90.0-100.0); ARTERIAL BLOOD GAS CARBOXY HB 0.7 %sat (0.0-9.0); ARTERIAL BLOOD GAS HCO3 9.7 mmol/L; ARTERIAL BLOOD GAS MET HB 0.8 %sat (0.0-2.0); ARTERIAL BLOOD GAS PCO2 22.6 mmHg (35.0-45.0); ARTERIAL BLOOD GAS PO2 83.5 mmHg (80.0-100); ARTERIAL BLOOD GAS pH 7.239 (7.350-7.450)
[2016-10-22 05:34] LABS: ARTERIAL DRAW? NO
[2016-10-22 09:02] LABS: CALCIUM SERUM 7.6 mg/dL (8.4-10.2); CREATININE SERUM 0.7 mg/dL (0.6-1.4); GLOM FILT RATE Estimated 153.2 mL/min (>60)
[2016-10-22 12:37] LABS: BUN/CREATININE RATIO 11.42; CALCIUM SERUM 8.5 mg/dL (8.4-10.2); CREATININE SERUM 0.7 mg/dL (0.6-1.4); GLOM FILT RATE Estimated 153.2 mL/min (>60); POTASSIUM 3.1 mmol/L (3.5-5.1)
[2016-10-22 18:28] LABS: CALCIUM SERUM 8.7 mg/dL (8.4-10.2); CREATININE SERUM 0.7 mg/dL (0.6-1.4); GLOM FILT RATE Estimated 153.2 mL/min (>60)
[2016-10-22 18:38] LABS: POTASSIUM 2.8 mmol/L (3.5-5.1)
[2016-10-23 07:33] LABS: BASOPHIL# 0.1 X10e3 (0-0.3); BASOPHIL% 0.7 % (0-2.5); EOSINOPHIL# 0.1 X10e3 (0-0.7); EOSINOPHIL% 1.4 % (0.0-7.0); HEMATOCRIT 40.7 % (38.0-50.0); LYMPHOCYTE# 3.5 X10e3 (1.0-3.5); LYMPHOCYTE% 41.4 % (17.0-45.0); MEAN CELL VOLUME 82.6 FL (83-96); MEAN CORPUSCULAR HEMOGLOBIN 27.3 PG (28-34); MEAN CORPUSCULAR HGB CONC 33.1 g/dL (30-36); MEAN PLATELET VOLUME 7.6 FL (6.5-11.5); MONOCYTE# 0.8 X10e3 (0-1.0); MONOCYTE% 9.2 % (3.0-12.0); NEUTROPHIL# 3.9 X10e3 (1.5-7.1); NEUTROPHIL% 47.3 % (40-75); PLATELET COUNT 405 X10e3 (140-420); RED BLOOD COUNT 4.93 X10e (3.90-5.60); RED CELL DISTRIBUTION WIDTH 14.9 % (11.0-15.5); WHITE BLOOD COUNT 8.3 X10e3 (4.0-10.5)
[2016-10-23 07:40] LABS: HEMOGLOBIN 13.5 gm/dL (13.0-16.0)
[2016-10-23 07:41] LABS: DIFF IND NO
[2016-10-23 07:58] LABS: ALBUMIN SERUM 2.9 g/dL (3.5-5.0); BILIRUBIN,TOTAL 0.2 mg/dL (0.2-2.0); BUN/CREATININE RATIO 11.66; CALCIUM SERUM 8.4 mg/dL (8.4-10.2); CREATININE SERUM 0.6 mg/dL (0.6-1.4); GLOM FILT RATE Estimated 163.2 mL/min (>60); POTASSIUM 3.2 mmol/L (3.5-5.1); PROTEIN TOTAL SERUM 6.3 g/dL (6.0-8.3)
[2016-10-24 04:26] LABS: BUN/CREATININE RATIO 7.14; CALCIUM SERUM 8.4 mg/dL (8.4-10.2); CREATININE SERUM 0.7 mg/dL (0.6-1.4); GLOM FILT RATE Estimated 153.2 mL/min (>60); MAGNESIUM 1.9 mg/dL (1.6-3.0); POTASSIUM 3.3 mmol/L (3.5-5.1)
[2016-10-25] MEDS ORDERED: IBUPROFEN800 MG PO (07:41)
== END 2016-10-25 09:29 | disposition home or self-care (01) | DRG 639 ==
LOC: CED 02:28 → C4B 08:15 → CEDOF 08:15 → CED 08:31 → CEDOF 08:31 → C4B 22:15
PROVIDERS: Emergency Medicine; Internal Medicine
DX: E13.10 Other specified diabetes mellitus with ketoacidosis without coma (principal); B95.61 Methicillin susceptible Staphylococcus aureus infection as the cause of diseases classified elsewhere; Z79.4 Long term (current) use of insulin; Z59.0 Homelessness; F17.210 Nicotine dependence, cigarettes, uncomplicated; F19.10 Other psychoactive substance abuse, uncomplicated; B95.1 Streptococcus, group B, as the cause of diseases classified elsewhere; S41.102A Unspecified open wound of left upper arm, initial encounter
CPT/HCPCS: 36415; 71010; 74177; 80048; 80053; 80076; 80307; 81003; 82010; 82150; 82803; 82947; 83036; 83690; 83735; 84132; 85025; 87040; 93005; 96361; 96365; 96375; 99285; J0696; J1650; J1815; J1885; J2405; J3475; Q9967

== ENCOUNTER 2017-01-05 02:10 | Inpatient (IN) | payer MEDICAID ==
[~2017-01-05] VITALS: Ht 170.2 cm; Wt 68.0 kg
--- NOTE | ~2017-01-05 | CR72 ---
[facility] A Service of [facility] RADIOLOGY TEXT RESULTS PATIENT: EDWARD CRAWFORD LOCATION: [facility] [id number] : [birth year] UNIT #: [id number] AGE: [address]: Talon Burch MD SEX: M ORDER DR: [id number] [facility] [address] [facility] [address]. [place], [place] [address] [id number] MR#: [id number] Acc #: [id number] NAME: EDWARD CRAWFORD : 1990 SEX: M STUDY DATE/TIME: 01/05/2017 04:04 UNIT: [facility] ROOM: [id number] STUDY DESCRIPTION: CR Chest Single View Portable Attending Physician: Talon Burch M.D. Ordering Physician: Scott Valdez M.D. Primary Care Physician: Primary Care Physician No MEDICAL IMAGING REPORT This report is preliminary unless electronic signature is present EXAM Portable chest, 01/05 at 04:05 INDICATIONS Chest pain and weakness that started tonight. COMPARISON 10/22/2016 FINDINGS A single AP portable view of the chest shows both lungs to be clear. The heart is normal in size. The mediastinal contour is normal. No significant bone abnormalities are seen. IMPRESSION Normal portable chest. Dictated by... Dewayne Martinez Jr., M.D. THIS IS AN ELECTRONICALLY VERIFIED REPORT Dewayne Martinez Jr., M.D. at 01/06/2017 9:12 PM GUNNAR/nancy TD: 01/06/2017 09:23 JOB #: [id number] MEDICAL IMAGING REPORT Page 1 of 1 COPY
--- NOTE | ~2017-01-05 | HP ---
Unit #: [id number] #: [id number] Patient: EDWARD CRAWFORD [id number] [address] [address] [id number] MR#: [id number] NAME: EDWARD CRAWFORD ROOM: [address]939 Age: 26 Sex: M Admission Date: 01/05/2017 : 1990 Attending Physician: Talon Burch M.D. Primary Care Physician: No Primary Care Physician HISTORY AND PHYSICAL CHIEF COMPLAINT Intractable nausea and vomiting. HPI The patient is a 26-year-old gentleman who presents with intractable nausea and vomiting. Had some high blood sugars and blood sugar was 610. He was diagnosed with having DKA, started on insulin protocol after getting a normal saline bolus. He had a difficult IV access situation. He has a history of IV drug use in the past. After multiple attempts, after about 12, patient declined having any blood sticks anymore. He does have a PICC line in place right now for blood draws and testing. Patient, at this time, is very unhappy with his situation and states he wants to eat, states he wants to go out to smoke. REVIEW OF SYSTEMS He denies any chest pain at this time. He is not very cooperative with review of system but a complete 10-point review has been attempted. Pertinent positives are noted. Patient (1) is hungry. PAST MEDICAL HISTORY 1. Type 1 diabetes. 2. IV drug use. 3. Tobaccoism. PAST SURGICAL HISTORY Eye surgery in the past. History is essentially from previous documentation in EHR. SOCIAL HISTORY History of polysubstance abuse. Smokes about a pack of cigarettes a day. FAMILY HISTORY Significant for diabetes. ALLERGIES No known drug allergies. MEDICATIONS Medications include: 1. Lantus. 2. Humalog. 3. Amitriptyline. REVIEW OF SYSTEMS Unit #: [id number] #: [id number] Patient: EDWARD CRAWFORD Limited at this time. Complete 10-point review of systems is attempted and patient is not very cooperative. PHYSICAL EXAMINATION GENERAL APPEARANCE: He is a not too happy 26-year-old male in no distress at this time. VITAL SIGNS: Blood pressure 144/85, pulse 80, respiratory rate 18. HEENT: Pupils were equal and reactive to light and accommodation. CHEST: Mostly clear. ABDOMEN: Full. Moved with respiration. Soft. No palpable organomegaly. No area of tenderness appreciable. SKIN: Warm and dry with no rashes. EXTREMITIES: No edema. NEUROLOGICAL: Cranial nerves II-XII grossly intact. Patient seems to move all his limbs spontaneously and equally with purpose and seemed to have a coherent conversation. He seems able to test reality at this time. DIAGNOSTIC STUDIES LABORATORY: He had glucose of 610, BUN and creatinine 22 and 1.4, sodium and potassium 128 and 5.9, chloride and bicarbonate 93 and 14 respectively. He has a CBC with WBC 10.1, hemoglobin and hematocrit 16.1 and 49.4 with a platelet count 294. ASSESSMENT AND PLAN 1. DKA. IV access has recently been obtained. Beta hydroxybutyrate assays will be obtained. He is currently on an insulin drip with DKA protocol. The plan was for admission to the ICU. The patient, however, is very unhappy with the fact that he needs to be NPO. I have advised him that I will defer to endocrinology whom I have consulted to evaluate him first before actually advancing his diet. He seemed dissatisfied with this and he is aware of his option to sign out against medical advice which he elects to exercise. 2. Tobaccoism. Patient is a smoker. He insists on going out to smoke. I have advised patient that in light of his diagnosis and his critical condition, I will be averse to let him go out to smoke. I have offered him a patch today which he has declined. Again, he is aware of his options to sign himself out against medical advice should he choose to exercise his right. 3. GI prophylaxis. Give him Protonix while he is here. 4. DVT prophylaxis. Put him on SCDs while he is in bed. I am not exactly sure if patient will decide to sign himself out against medical advice. Patient has been advised that he stands the risk of or severe consequences should his DKA status not be treated or resolved. He currently has no insulin at this point. Follow up certainly will be in his best interest as well as keeping him out of the hospital. Again, patient is decisional. Should he sign out against medical advice, he will be discharged against medical advice. Otherwise, will transfer him to the ICU and manage him accordingly. Critical care time spent is about 36 minutes. Unit #: [id number] #: [id number] Patient: EDWARD CRAWFORD Dictated by Marvin Hay TD: 01/06/2017 06:12 JOB #: [id number] HISTORY AND PHYSICAL Page 1 of 1 X Talon Burch MD X HISTORY AND PHYSICAL
--- NOTE | ~2017-01-05 | EKG ---
PATIENT: EDWARD CRAWFORD UNIT #: [id number] Ventricular Rate: 71 BPM Atrial Rate: 71 BPM P-R Interval: 114 ms QRS Duration: 88 ms Q-T Interval: 418 ms QTC Calculation(Bezet): 454 ms P [place]: 51 degrees Calculated R [place]: 65 degrees Calculated T [place]: 38 degrees Diagnosis Line: Normal sinus rhythm Diagnosis Line: Normal ECG Diagnosis Line: No previous ECGs available Diagnosis Line: Confirmed by TRINIDAD MAX MD ([id number]) on 01/05/2017 Diagnosis Line: 11:08:01 PM INTERPRETING MD: MANSOOR CH
--- NOTE | ~2017-01-05 | EKG ---
PATIENT: EDWARD CRAWFORD UNIT #: [id number] Ventricular Rate: 67 BPM Atrial Rate: 67 BPM P-R Interval: 134 ms QRS Duration: 100 ms Q-T Interval: 472 ms QTC Calculation(Bezet): 498 ms P [place]: 58 degrees Calculated R [place]: 68 degrees Calculated T [place]: 62 degrees Diagnosis Line: Normal sinus rhythm with sinus arrhythmia Diagnosis Line: Prolonged QT Early repolarization Diagnosis Line: Abnormal ECG Diagnosis Line: When compared with ECG of 05-JAN-2017 06:55, Diagnosis Line: (unconfirmed) Diagnosis Line: ST elevation now present in Anterior leads Diagnosis Line: QT has lengthened Diagnosis Line: Confirmed by TRINIDAD MAX MD ([id number]) on 01/05/2017 Diagnosis Line: 11:08:14 PM INTERPRETING MD: MANSOOR CH
[~2017-01-05 02:10] MED LIST changes: +IBUPROFEN800 MG PO
[2017-01-05 05:06] LABS: POC - CKMB 4.1 ng/mL (0.0-7.9); POC - TROPONIN <0.05 ng/mL (<=0.05)
[2017-01-05 05:07] LABS: BASOPHIL# 0.1 X10e3 (0-0.3); BASOPHIL% 0.7 % (0-2.5); EOSINOPHIL# 0.1 X10e3 (0-0.7); EOSINOPHIL% 0.6 % (0.0-7.0); HEMATOCRIT 49.4 % (38.0-50.0); HEMOGLOBIN 16.1 gm/dL (13.0-16.0); LYMPHOCYTE% 29.7 % (17.0-45.0); MEAN CORPUSCULAR HEMOGLOBIN 29.6 PG (28-34); MEAN CORPUSCULAR HGB CONC 32.5 g/dL (30-36); MEAN PLATELET VOLUME 9.2 FL (6.5-11.5); MONOCYTE# 0.5 X10e3 (0-1.0); MONOCYTE% 4.6 % (3.0-12.0); NEUTROPHIL# 6.5 X10e3 (1.5-7.1); NEUTROPHIL% 64.4 % (40-75); PLATELET COUNT 294 X10e3 (140-420); RED BLOOD COUNT 5.43 X10e (3.90-5.60); WHITE BLOOD COUNT 10.1 X10e3 (4.0-10.5)
[2017-01-05 05:41] LABS: DIFF IND NO
[2017-01-05 05:44] LABS: ALBUMIN SERUM 5.5 g/dL (3.5-5.0); BILIRUBIN, DIRECT 0.1 mg/dL (0.0-0.2); BILIRUBIN,TOTAL 2.1 mg/dL (0.2-2.0); BUN/CREATININE RATIO 15.71; CALCIUM SERUM 10.1 mg/dL (8.4-10.2); CREATININE SERUM 1.4 mg/dL (0.6-1.4); PROTEIN TOTAL SERUM 9.3 g/dL (6.0-8.3)
[2017-01-05 05:47] LABS: POTASSIUM 5.9 mmol/L (3.5-5.1)
== END 2017-01-05 11:30 | disposition left against medical advice (07) | DRG 639 ==
LOC: CED 02:10 → CEDOF 06:31 → CED 06:35 → CEDOF 06:35
PROVIDERS: Emergency Medicine
PROC: 02HV33Z Insertion of Infusion Device into Superior Vena Cava, Percutaneous Approach (ICD-10-PCS; principal; 2017-01-05)
DX: E10.10 Type 1 diabetes mellitus with ketoacidosis without coma (principal); I10 Essential (primary) hypertension; F41.9 Anxiety disorder, unspecified; F17.200 Nicotine dependence, unspecified, uncomplicated; Z79.4 Long term (current) use of insulin
CPT/HCPCS: 36415; 71010; 80048; 80076; 82553; 82947; 83690; 84484; 85025; 93005; 96360; 99285; J1815